=== PATIENT | female | born 1945 | race Caucasian/White ===

== ENCOUNTER 2021-09-19 09:10 | Emergency (ER) | payer MEDICARE, BC ==
[~2021-09-19] VITALS: Ht 165.1 cm; Wt 68.2 kg
[~2021-09-19 09:10] MED LIST: ASPI81TA30 PO; CHOL2000 PO; CPAP AT NIGHT; DIPH25CA83 PO; ESCI-8 PO; HYDR25TA4 PO; LACT1CAP65 PO; LUTE1CAP4 PO; MAGNESIUM CITRATE PO; RED600TA PO; TIMO5SOL8 EACHEYE; UBIQ75CA PO; XAL0.005OS OP
[2021-09-19] MEDS ORDERED: normal saline 1000ml 1,000 ML IV ONE (09:55)
[2021-09-19 10:29] LABS: BASOPHILS % (AUTO) 0.2 % (0-1); EOSINOPHILS % (AUTO) 0 % (0-6); HEMATOCRIT 39.8 % (35.0-45.0); HEMOGLOBIN 14.2 g/dl (12.0-16.0); LYMPHOCYTES # (AUTO) 0.6 X10'3 (1.1-4.8); LYMPHOCYTES % (AUTO) 6.7 % (21-51); MEAN CORPUSCULAR HEMOGLOBIN 30.6 PG (27.0-31.0); MEAN CORPUSCULAR HGB CONC 35.6 g/dL (33.0-36.5); MEAN CORPUSCULAR VOLUME 85.8 FL (78-98); MEAN PLATELET VOLUME 7.2 FL (7.4-10.4); MONOCYTES # (AUTO) 0.8 X10'3 (0-0.9); MONOCYTES % (AUTO) 8.5 % (2-12); NEUTROPHILS # (AUTO) 7.9 X10'3 (1.8-7.7); NEUTROPHILS % (AUTO) 84.6 % (42-75); PLATELET COUNT 273 X10'3 (140-440); RED BLOOD COUNT 4.64 X10'6 (4.20-5.60); RED CELL DISTRIBUTION WIDTH 13.8 % (11.5-14.5); WHITE BLOOD COUNT 9.4 X10'3 (4.5-11.0)
[2021-09-19 10:44] LABS: ALANINE AMINOTRANSFERASE 101 U/L (12-78); ALBUMIN 3.3 G/DL (3.4-5.0); ALBUMIN/GLOBULIN RATIO 0.8 (1.1-1.5); ALKALINE PHOSPHATASE 52 IU/L (46-116); ANION GAP 9 (8-16); ASPARTATE AMINO TRANSFERASE 57 U/L (10-37); BILIRUBIN,DIRECT 0.2 MG/DL (0-0.3); BILIRUBIN,TOTAL 0.5 MG/DL (0.1-1.0); BLOOD UREA NITROGEN 12 MG/DL (7-18); BUN/CREATININE RATIO 14.6 (6.6-38.0); CALCIUM 8.8 MG/DL (8.5-10.1); CHLORIDE 90 MMOL/L (99-107); CREATININE 0.82 MG/DL (0.40-0.90); GLUCOSE 168 MG/DL (70-104); LIPASE 74 U/L (73-393); POTASSIUM 3.1 MMOL/L (3.5-5.1); SODIUM 128 MMOL/L (135-145); TOTAL CARBON DIOXIDE 29.2 MMOL/L (24-32); TOTAL PROTEIN 7.7 G/DL (6.4-8.2); eGFR 68 ML/MIN
[2021-09-19] MEDS ORDERED: iohexol 300mg/ml 100ml inj. ONE (12:10)
[2021-09-19 21:16] VITALS: BP 115/68
[2021-09-19 21:26] LABS: CLARITY,URINE CLEAR (Clear); COLOR,URINE YELLOW (Yellow); GLUCOSE, URINE NEGATIVE (Neg); KETONES,URINE 15 mg/dl (Neg); LEUKOCYTE ESTERASE ,URINE NEGATIVE (Neg); NITRITES, URINE NEGATIVE (Neg); OCCULT BLOOD,URINE NEGATIVE (Neg); PH,URINE 6.5 (4.8-8.0); PROTEIN,URINE 30 mg/dl (Neg); UA COLLECTION TYPE CLN CATCH MIDSTREAM; UROBILINOGEN,URINE 0.2 E.U/dL (0.2-1.0)
[2021-09-19] MEDS ORDERED: potassium Cl 20 mEq SR tablet PO STA (21:33)
[2021-09-19 21:41] LABS: BACTERIA,URINE FEW /HPF (Neg); MUCUS STRANDS FEW /LPF (Neg); RBC,URINE NONE SEEN /HPF (0-2); RENAL CELLS, URINE FEW /HPF; SQUAMOUS EPITHELIAL CELL,UR FEW /LPF (FEW); TRANSITIONAL EPI CELLS,URINE FEW /HPF
== END 2021-09-19 22:12 | disposition home or self-care (01) ==
LOC: ER 09:10
DX: R53.1 Weakness (principal); E87.1 Hypo-osmolality and hyponatremia; R73.9 Hyperglycemia, unspecified; E87.6 Hypokalemia; R05.9 Cough, unspecified; R06.02 Shortness of breath; J44.9 Chronic obstructive pulmonary disease, unspecified; Z79.82 Long term (current) use of aspirin; Z79.899 Other long term (current) drug therapy
CPT/HCPCS: 36415; 71045; 74177; 80048; 80076; 81001; 83690; 85025; 99285; J7030; Q9967

== ENCOUNTER 2024-12-29 12:58 | Emergency (ER) | payer MEDICARE, BC ==
[~2024-12-29] VITALS: Ht 165.1 cm; Wt 72.7 kg
[2024-12-29 13:11] VITALS: TEMP 97
[2024-12-29 13:47] LABS: BASOPHILS # (AUTO) 0.1 X10'3 (0-0.2); BASOPHILS % (AUTO) 0.6 % (0-1); EOSINOPHILS # (AUTO) 0.3 X10'3 (0-0.9); EOSINOPHILS % (AUTO) 3.6 % (0-6); HEMATOCRIT 42.7 % (35.0-45.0); HEMOGLOBIN 14.6 g/dl (12.0-16.0); LYMPHOCYTES % (AUTO) 11.9 % (21-51); MEAN CORPUSCULAR HEMOGLOBIN 30.8 PG (27.0-31.0); MEAN CORPUSCULAR HGB CONC 34.3 g/dL (33.0-36.5); MEAN CORPUSCULAR VOLUME 89.9 FL (78-98); MEAN PLATELET VOLUME 7.5 FL (7.4-10.4); MONOCYTES # (AUTO) 0.7 X10'3 (0-0.9); MONOCYTES % (AUTO) 8.1 % (2-12); NEUTROPHILS # (AUTO) 6.6 X10'3 (1.8-7.7); NEUTROPHILS % (AUTO) 75.8 % (42-75); PLATELET COUNT 320 X10'3 (140-440); RED BLOOD COUNT 4.75 X10'6 (4.20-5.60); RED CELL DISTRIBUTION WIDTH 14.3 % (11.5-14.5); WHITE BLOOD COUNT 8.7 X10'3 (4.5-11.0)
[2024-12-29 14:03] LABS: ALANINE AMINOTRANSFERASE 44 U/L (12-78); ALBUMIN 4.2 G/DL (3.4-5.0); ALBUMIN/GLOBULIN RATIO 1.1 (1.1-1.5); ALKALINE PHOSPHATASE 80 IU/L (46-116); ANION GAP 9 (8-16); ASPARTATE AMINO TRANSFERASE 29 U/L (10-37); BILIRUBIN,TOTAL 0.7 MG/DL (0.1-1.0); BLOOD UREA NITROGEN 14 MG/DL (7-18); BUN/CREATININE RATIO 20.9 (10.0-20.0); CALCIUM 9.2 MG/DL (8.5-10.1); CHLORIDE 98 MMOL/L (99-107); CREATININE 0.67 MG/DL (0.40-0.90); GLUCOSE 115 MG/DL (70-104); POTASSIUM 3.8 MMOL/L (3.5-5.1); SODIUM 136 MMOL/L (135-145); TOTAL CARBON DIOXIDE 29.3 MMOL/L (24-32); TOTAL PROTEIN 8.1 G/DL (6.4-8.2); eCRCL 63 ML/MIN; eGFR 85 ML/MIN
[2024-12-29 14:09] LABS: PRO BRAIN NATRIURETIC PEPTIDE 133 PG/ML (0-450)
[2024-12-29 16:00] VITALS: BP 171/96; PULSE 75; RESP 16; O2SAT 94
== END 2024-12-29 16:29 | disposition home or self-care (01) ==
LOC: ER 12:59
DX: R07.89 Other chest pain (principal); J44.9 Chronic obstructive pulmonary disease, unspecified; E78.5 Hyperlipidemia, unspecified; I10 Essential (primary) hypertension; Z79.82 Long term (current) use of aspirin
CPT/HCPCS: 36415; 71045; 80053; 83880; 84484; 85025; 93005; 99285

== ENCOUNTER 2025-06-11 14:21 | Emergency (ER) | payer MEDICARE, BC ==
[~2025-06-11] VITALS: Ht 165.1 cm; Wt 70.0 kg
[2025-06-11 14:23] VITALS: BP 147/68; PULSE 100; RESP 16; TEMP 98.9; O2SAT 94
--- NOTE | 2025-06-11 15:07 | RADIOLOGY REPORT ---
DI CHEST,SINGLE VIEW, HISTORY: hemoptysis COMPARISON: DI CHEST,SINGLE VIEW on DOS: 12/29/24, CHEST,SINGLE VIEW on DOS: 09/19/21 DI CHEST,SINGLE VIEW on DOS: 12/29/24, CHEST,SINGLE VIEW on DOS: 09/19/21 TECHNICAL DATA: 1 view of the chest was obtained. FINDINGS: Lines and tubes: None Cardiomediastinal silhouette: normal Pulmonary vasculature: normal Lung expansion: normal Lung airspace: normal Lung interstitium: normal Pleura: normal Pneumothorax: no Bones: Unremarkable Other: no IMPRESSION: No acute intrathoracic abnormality.
--- NOTE | 2025-06-11 15:21 | Physician Documentation ---
History of Present Illness ~ Chief Complaint: Cough Stated Complaint: COUGHING BLOOD Time Seen by MD: 15:22 HPI Patient with a history of COPD presents to the emergency department with two weeks of cough. She also notes hemoptysis occurring today x2 episodes. Darker blood the 1st time, much marketing research intern and then smaller quantity with the 2nd time she was coughing. She denies any chills or fever or chest pain. She does note that her shortness of breath has been worse in the last few days. Issues with vaginal odor, no discharge, no dysuria. Medication Reconciliation Allergies: Coded Allergies: No Known Allergies (Unverified , 06/11/25) Scheduled Aspirin (Aspirin), 1 TABLET PO DAILY, (Reported) Cholecalciferol (Vitamin D3) (Vitamin D), 1 CAP PO DAILY, (Reported) Diphenhydramine Hcl (Benadryl), 2 CAP PO HS, (Reported) Escitalopram Oxalate (Escitalopram Oxalate), 10 MG PO DAILY, (Reported) Hydrochlorothiazide (Hydrochlorothiazide), 1 TABLET PO DAILY, (Reported) Lactobacillus Acidophilus (Probiotic), 1 EACH PO BID, (Reported) Latanoprost (XALATAN ophth drops), 1 DROP OP DAILY, (Reported) Lutein/Zeaxanthin (Lutein-Zeaxanthin 25-5 Mg Sfgl), 1 EACH PO DAILY, (Reported) Red Yeast Rice (Red Yeast Rice), 600 MG PO DAILY, (Reported) Timolol Maleate Xe 0.5%* (Timoptic Xe 0.5%*), 1 DRP EACHEYE BID, (Reported) Ubidecarenone (Ultra Coq10), 100 MG PO DAILY, (Reported) [Magnesium Citrate], 1 TAB PO HS, (Reported) Miscellaneous Medications [Cpap At Night], (Reported) Past Medical History Past Medical History: COPD Past Surgical History: noncontributory Alcohol Use: None Drug Use: none Lives In: Home Review of Systems ROS As stated above in the HPI, otherwise all systems are reviewed and negative. Physical Exam Vital Signs: Temperature: 98.9, Source: Temporal, Heart Rate: 100, Respiratory Rate: 16, BP: 147/68, Pulse Oximetry: 94, Weight: 70.000 Oxygen Flow Rate: 0 Physical Exam General: Alert, no apparent distress. HEENT: PERRL, EOMI, no injection, moist mucous membranes. Neck: Full range of motion. Respiratory: Lungs clear, no respiratory distress. Dim throughout. Chest: No accessory muscle use. Cardiovascular: Regular rate and rhythm, no murmurs. Gastrointestinal: Soft, nontender, nondistended. Bowels sounds present. Extremities: Normal range of motion, no deformity. Neurologic: Oriented x4. Psychiatric: Normal mood and affect. Skin: Normal color, warm and dry. No edema, no ecchymosis. Progress Results/Orders Results/Orders Orders - RAQUEL HAGEN TELEVISION OPERATOR Chest,Single View (06/11/25 14:27) Completed Orders - RAQUEL HAGEN TELEVISION OPERATOR Chest,Single View (06/11/25 14:27) Vital Signs 06/11/25 14:23 Temp 98.9 Pulse 100 Resp 16 B/P (MAP) 147/68 Pulse Ox 94 O2 Flow Rate 0 EKG/XRAY/CT/US/VASC/MRI Chest X-Ray : Additional Comments [place] [id number] DIAGNOSTIC RADIOLOGY Patient: JESSICA CHATTERJEE Medical Record: [id number] ELIZABETH FORT THOMAS : 1945, Age: 80 Sex: Female Location: ER Patient Status: REG ER Service Date/Time: 06/11/251426 Ordering Physician: RAQUEL HAGEN TELEVISION OPERATOR Exam: CHEST,SINGLE VIEW DI CHEST,SINGLE VIEW, HISTORY: hemoptysis COMPARISON: DI CHEST,SINGLE VIEW on DOS: 12/29/24, CHEST,SINGLE VIEW on DOS: 09/19/21 DI CHEST,SINGLE VIEW on DOS: 12/29/24, CHEST,SINGLE VIEW on DOS: 09/19/21 TECHNICAL DATA: 1 view of the chest was obtained. FINDINGS: Lines and tubes: None Cardiomediastinal silhouette: normal Pulmonary vasculature: normal Lung expansion: normal Lung airspace: normal Lung interstitium: normal Pleura: normal Pneumothorax: no Bones: Unremarkable Other: no IMPRESSION: No acute intrathoracic abnormality. Electronically Signed by:ASHWIN JAMES MD Date & Time: 06/11/251503 Dictated by: ASHWIN JAMES MD Dictation date and time: 06/11/25 150 Primary Care Provider: NO PRIMARY CARE PROVIDER cc: RAQUEL HAGEN NP ~ Medical Decision Making Differential Diagnosis This is a 80-year-old female with a history of COPD. Recent increase in mucopurulent mucus, some blood, worsening shortness of breath. We will be treated with azithromycin and prednisone. CXR neg for PNA, pneumothorax Also had incidental concern for vaginal odor, provided recommendation for local gynecologists. Departure Time of Disposition: 15:58 Disposition: 01 HOME / SELF CARE / HOMELESS Impression: Primary Impression: Vaginal odor Additional Impression: Acute exacerbation of emphysema Discharge Instructions: Chronic Bronchitis, Adult, Vaginitis Additional Instructions: You are being treated for an exacerbation of your chronic COPD with an antibiotic and prednisone. Continue to use your Trelegy and albuterol as prescribed. You had concerns about vaginal odor without discharge or dysuria. Please make an appointment with a package sealer machine to discuss these concerns. A couple recommendations are [facility], Dr. Neal, or Dr. Engel. Return if worse. Referrals: NO PRIMARY CARE PROVIDER (PCP) Prescriptions Prednisone* (Prednisone*) 20 Mg Tablet 2 TAB PO DAILY, #10 TAB Prov: RAQUEL HAGEN NP 06/11/25 Azithromycin (Azithromycin) 250 Mg Tablet 1 TAB PO UD for 5 Days, #6 TAB 2 the first day followed by 1 for days 2-5 Prov: RAQUEL HAGEN NP 06/11/25 Education Educated: Patient Educated regarding: diagnosis, treatment, prognosis, need for follow up Signature Scribe Signature: x Attestation: The note accurately reflects work and decisions made by me.Raquel Pugh NP 06/11/25 15:58 RAQUEL HAGEN NP Jun 11, 2025 15:21
[2025-06-11] MEDS ORDERED: AZIT250T29 PO (16:00)
[2025-06-11] MEDS ORDERED: PRED20TA PO (16:00)
== END 2025-06-11 16:17 | disposition home or self-care (01) ==
LOC: ER 14:22
DX: N89.8 Other specified noninflammatory disorders of vagina (principal); J43.9 Emphysema, unspecified; Z79.82 Long term (current) use of aspirin
CPT/HCPCS: 71045; 99283

== ENCOUNTER 2025-08-21 15:28 | Outpatient (CLI) | payer MEDICARE, BC ==
--- NOTE | 2025-08-21 16:59 | RADIOLOGY REPORT ---
CHEST RADIOGRAPH Indication: HEMOPTYSIS, COPD, BRONCHITIS Technique: Frontal and lateral view of the chest was obtained Comparison: DI CHEST,SINGLE VIEW on DOS: 06/11/25, DI CHEST,SINGLE VIEW on DOS: 12/29/24, CHEST,SINGLE VIEW on DOS: 09/19/21 FINDINGS: Lines and Tubes: None Lungs: Right lower lobe airspace disease Pleura: No effusion. No pneumothorax. Cardiomediastinal contours: Unremarkable Bones: Unremarkable IMPRESSION: Right lower lobe airspace disease.
== END 2025-08-21 23:59 | disposition home or self-care (01) ==
LOC: RAD 15:28
PROVIDERS: ATTEND Internal Medicine
DX: J44.1 Chronic obstructive pulmonary disease with (acute) exacerbation (principal); J20.9 Acute bronchitis, unspecified; R04.2 Hemoptysis
CPT/HCPCS: 71046

== ENCOUNTER 2025-09-17 12:28 | Outpatient (CLI) | payer MEDICARE, BC ==
[~2025-09-17 12:28] MED LIST changes: +ALBU10.7; +AMLO-379 PO; +CEFD300C3 PO; -ESCI-8 PO; +FLUT1BLS16 INH; -LUTE1CAP4 PO; -MAGNESIUM CITRATE PO; +POTA-207 PO; -RED600TA PO; +ROSU5TAB51 PO; +iohexol 300mg/ml 100ml inj. ONE
--- NOTE | 2025-09-17 14:01 | RADIOLOGY REPORT ---
Procedure: CT CT CHEST W/ IV CONTRAST Reason for study/Clinical History: NONSPECIFIC ABNORMAL FINDING OF LUNG FIELD Comparison Study: None Exam Date: 09/17/2025 01:29 PM TECHNIQUE: Multidetector CT of the chest was performed from the lung apices to the upper abdomen without the use of intravenous contract. Axial, coronal and sagittal multiplanar reformats were performed. Radiation Dose Information: CT Dose: CTDI volume is 25 mGy. Dose-length product is 250 mGy*cm The dose indicators for CT are the volume Computed Tomography (CT) Dose Index (CTDIvol) and the Dose Length Product (DLP), and are measured in units of mGy and mGy-cm, respectively. These indicators are not patient dose, but values generated from the CT scanner acquisition factors. The report includes radiation exposure data for exposures received during this examination. FINDINGS: Lower neck: Normal thyroid. Lungs: No interval change. 6.7 x 3.5 x 4.3 cm right infrahilar masslike opacity with extensive right middle lobe mucous plugging, mild right lower lobe mucous plugging, and scattered right middle and lower lobe opacities. Favor infection with malignancy also in the differential. Bronchoscopy recommended with tissue sampling. Heart/Vascular Structures: Normal heart size. No pericardial effusion. Lymph Nodes: No adenopathy Pleura: No pleural effusion or significant pneumothorax. Musculoskeletal: No acute osseous abnormality. Soft tissues: Normal. Upper abdomen: Limited portions of the upper abdomen are unremarkable. IMPRESSION: No interval change. 6.7 x 3.5 x 4.3 cm right infrahilar masslike opacity with extensive right middle lobe mucous plugging, mild right lower lobe mucous plugging, and scattered right middle and lower lobe opacities. Favor infection with malignancy also in the differential. Bronchoscopy recommended with tissue sampling. Radiation optimization: All CT scans at this facility use at least one of these dose optimization techniques: automated exposure control mA and/or kV adjustment per patient size (includes targeted exams where dose is matched to clinical indication) or iterative reconstruction.
== END 2025-09-17 23:59 | disposition home or self-care (01) ==
LOC: RAD 12:28
PROVIDERS: ATTEND Internal Medicine
DX: R91.8 Other nonspecific abnormal finding of lung field (principal); J18.9 Pneumonia, unspecified organism; R93.89 Abnormal findings on diagnostic imaging of other specified body structures
CPT/HCPCS: 71260; Q9967